=== PATIENT | male | born 1935 | race Caucasian/White ===

== ENCOUNTER 2017-09-25 14:54 | Inpatient (IN) | payer MEDICARE, OTHER ==
[2017-09-25] MEDS ORDERED: Metoprolol Tartrate 5 MG/5 ML VIAL ONE ×2 (15:14→16:09)
[2017-09-25 15:26] LABS: #Basophils 0.1 thou/uL (0.0-0.2); #Eosinphils 0.1 thou/uL (0.0-0.7); #Lymphocytes 1.7 thou/uL (1.20-3.40); #Monocytes 0.9 thou/uL (0.11-0.59); #Neutrophils 7.7 thou/uL (1.40-6.50); %Basophils 0.6 % (0.0-1.0); %Eosinophils 0.5 % (0.0-10.0); %Lymphocytes 16.1 % (21.0-51.0); %Monocytes 8.5 % (0.0-10.0); Hematocrit 44.3 % (42.0-52.0); Mean Platelet Volume 7.8 fL (7.4-10.4); Red Blood Cell (RBC) Count 4.54 mill/uL (4.70-6.10); White Blood Cell (WBC) Count 10.4 thou/uL (4.8-10.8)
[2017-09-25 15:47] LABS: ALT (SGPT) 16 U/L (8-55); AST (SGOT) 17 U/L (5-34); Alkaline Phosphatase 61 U/L (40-150); Anion Gap 12 mmol/L (10-20); BUN (Urea Nitrogen) 24 mg/dL (8.4-25.7); Bilirubin, Total 0.7 mg/dL (0.2-1.2); CK (CPK) 69 U/L (30-200); Calc. Creatinine Clearance 0 mL/min (70-130); Calcium 9.9 mg/dL (7.8-10.44); Carbon Dioxide 25 mmol/L (23-31); Chloride 99 mmol/L (98-107); Estimated GFR-MDRD 52; Globulin 2.9 g/dL (2.4-3.5); Protein, Total 6.6 g/dL (5.8-8.1)
[2017-09-25 15:50] LABS: Troponin I Less than 0.010 ng/mL (< 0.028)
--- NOTE | 2017-09-25 16:19 | RAD ---
CHEST SINGLE VIEW: Date: 09/25/17 COMPARISON: 07/01/17. INDICATION: Chest pain. FINDINGS: No consolidation, effusion, or pneumothorax. Cardiac silhouette is within normal limits of size for p ortable technique. Leads overlie the chest limiting detail. IMPRESSION: No focal consolidation. POS: WILLIAMS
[2017-09-25] MEDS ORDERED: Diltiazem HCl 125 MG, Admixture Fee 1 EACH in Sodium Chloride 0.9% 100 ML IVPB SCH (17:45)
[2017-09-25 18:58] LABS: Troponin I 0.011 ng/mL (< 0.028)
--- NOTE | 2017-09-25 19:22 | HP ---
PRIMARY CARE PROVIDER: TILA Bond. CHIEF COMPLAINT: Palpitations. HISTORY OF PRESENT ILLNESS: Mr. Sepulveda is a pleasant 82-year-old gentleman who was seen at [facility] on 09/25/2017. He was hospitalized at this facility from 07/02/2017 to 2016 for atrial fibrillation/atypical flutter, for which he underwent cardioversion. He reports doing well following discharge. He was seen by Electrophysiology Service as outpatient ap proximately 3 weeks ago. He reports that everything was fine. Two days ago, he developed palpitatio ns. Yesterday, his heart rate improved. However, today it worsened. His heart rate was reportedly in the 170s today. He therefore came to the emergency room. He denies any chest pain. He denies any lightheadedness. He denies any nausea or vomiting. REVIEW OF SYSTEMS: The following complete review of systems was negative, unless otherwise mentioned in the HPI or below: Constitutional: Weight loss or gain, sense of well-being, ability to conduct usual activities, exerc ise tolerance. Skin/Breast: Rash, itching, changes in hair growth or loss, nail changes, breast lumps, tenderness, swelling, nipple discharge. Eyes: Vision, double vision, tearing, blind spots, pain. ENT/Mouth: Headaches (location, time of onset, duration, precipitating factors), vertigo, lightheade dness, injury. Vision, double vision, tearing, blind spots, pain, nose bleeding, colds, obstruction, discharge, dental difficulties, gingival bleeding, dentures, neck stiffness, pain, tenderness, masses in thyroid or other areas. Cardiovascular: Precordial pain, substernal distress, palpitations, syncope, dyspnea on exertion, or thopnea, nocturnal paroxysmal dyspnea, edema, cyanosis, hypertension, heart murmurs, varicosities, ph lebitis, claudication. Respiratory: Pain, shortness of breath, wheezing, stridor, cough, hemoptysis, fever or night sweats. Gastrointestinal: Poor appetite, dysphagia, indigestion, abdominal pain, heartburn, eructation, naus ea, vomiting, hematemesis, jaundice, constipation, or diarrhea, abnormal stools (christa-colored, tarry, bloody, greasy, foul smelling), flatulence, hemorrhoids, recent changes in bowel habits. Genitourinary: Urgency, frequency, dysuria, nocturia, hematuria, polyuria, oliguria, unusual (or micheline nge in) color of urine, stones, hesitancy, change in size of stream, dribbling, acute retention or in continence, libido, potency. Musculoskeletal: Pain, swelling, redness or heat of muscles or joints, limitation, of motion, muscul ar weakness, atrophy, cramps. Neurologic/Psychiatric: Convulsions, paralyses, tremor, incoordination, paresthesias, difficulties w ith memory of speech, sensory or motor disturbances, or muscular coordination (ataxia, tremor), emoti onal problems, anxiety, depression, previous psychiatric care, unusual perceptions, hallucinations. Allergy/Immunologic: Skin rash, anemia, bleeding tendency, polydipsia, polyuria, intolerance to heat or cold. PAST MEDICAL HISTORY: Significant for hypertension, hypothyroidism, paroxysmal atrial fibrillation a nd dyslipidemia. PAST SURGICAL HISTORY: Significant for ablation for atrial fibrillation, bilateral cataract surgery, and skin cancer removal from the nose. SOCIAL HISTORY: The patient denies any tobacco use, alcohol use or recreational drug use. FAMILY HISTORY: No family history of premature coronary artery disease. ALLERGIES: ACETAMINOPHEN. CURRENT MEDICATIONS: Amlodipine 10 mg daily, apixaban 2.5 mg b.i.d., vitamin C 500 mg at bedtime, vi tamin D 1000 units daily, vitamin B12 of 1000 mcg daily, Multaq 400 mg 2 times a day, ferrous sulfate 45 mg at bedtime, folic acid 0.4 mg daily, levothyroxine 125 mcg daily, and Zocor 20 mg in the eveni ng. His beta octavia was stopped during his last admission. CODE STATUS: I discussed his code status. He is FULL CODE. His is the substitute decision [facility]. PHYSICAL EXAMINATION: GENERAL: On examination, Mr. Sepulveda is awake and alert, not in acute distress. VITAL SIGNS: Blood pressure is 138/109, pulse is 103, he is breathing at rate of 24 and saturating 9 6% on room air. He is afebrile. EYES: No scleral icterus. No conjunctival pallor. ENT: Moist mucosal membranes, no oropharyngeal erythema or exudates. NECK: Supple, nontender, normal range of movement, trachea is midline. RESPIRATORY: Accessory muscles of breathing are not active. Chest wall movements are symmetric bila terally. Lungs are clear to auscultation without wheeze, rhonchi or crepitations. CARDIOVASCULAR: S1 and S2 are heard, irregular and tachycardic. Peripheral pulses palpable. No car otid bruit, no pericardial rub. ABDOMEN: Soft, nontender, bowel sounds heard, no hepatomegaly, no splenomegaly. NEUROLOGIC: Cranial nerves II-XII are intact. Deep tendon reflexes are 2+. MUSCULOSKELETAL: Power is 5/5 in all 4 extremities. Normal range of movement at all major extremity joints. SKIN: No rashes or subcutaneous nodules. LYMPHATIC: No cervical lymphadenopathy. PSYCHIATRIC: Normal mood, normal affect, the patient is oriented to person, place, and time. LABORATORY DATA: Mr. Sepulveda's labs and investigations were reviewed. I reviewed his electrocardiogram , which shows atrial fibrillation with rapid ventricular response. No ST changes to suggest an acute coronary syndrome. I also reviewed his chest x-ray, which does not show any pulmonary infiltrates. Laboratory investigations revealed normal white count, normal hemoglobin, normal platelet count, nor mal TSH, normal liver profile, elevated creatinine of 1.33, last known creatinine was 1.36 on 017, decreased sodium of 132 and normal potassium. ASSESSMENT AND PLAN: Mr. Sepulveda is a pleasant 82-year-old gentleman who was seen at [facility]. His problem list includes: 1. Atrial fibrillation with rapid ventricular response: Mr. Sepulveda has been started on a Cardizem dri p. His heart rate is between 100 and 110 currently. We will continue him on Cardizem drip. He will be admitted to the hospital for Cardiology Service consultation, telemetry monitoring. 2. Hyponatremia: Mild, we will recheck. 3. Hypothyroidism: His Synthroid dose was increased during his last admission. His TSH is normal n ow. Continue current dose of Synthroid. 4. Hypertension: Monitor vital signs, titrate antihypertensives as needed. 5. Dyslipidemia: Continue statin. Many thanks for allowing me to participate in your patient's care. Please feel free to contact me wi th any questions or concerns. LEVEL OF RISK: High. LEVEL OF COMPLEXITY: High.
[2017-09-25] MEDS ORDERED: Diltiazem 125 MG in Sodium Chloride 0.9% 100 ML IVPB SCH (21:15)
[2017-09-25] MEDS: Apixaban 5 MG TAB PO SCH (21:48)
[2017-09-25] MEDS: Atorvastatin Calcium 10 MG TAB PO SCH (21:48)
[2017-09-25] MEDS: Ascorbic Acid 500 mg Chewable Tablet PO SCH (21:50)
[2017-09-25 22:03] LABS: Troponin I 0.012 ng/mL (< 0.028)
[2017-09-25 23:57] VITALS: BMI 20.6
[2017-09-26 05:22] LABS: Hematocrit 45.6 % (42.0-52.0)
[2017-09-26] MEDS: Levothyroxine Sodium 125 MCG TAB PO SCH (06:21)
[2017-09-26] MEDS ORDERED: Amlodipine 10 MG TAB PO SCH ×2 (09:00→11:12)
[2017-09-26] MEDS: Dronedarone HCl 400 MG TAB PO SCH ×2 (10:16→18:21)
[2017-09-26] MEDS: Cyanocobalamin (Vitamin B-12) 1,000 MCG TAB PO SCH (10:17)
[2017-09-26] MEDS: Apixaban 5 MG TAB PO SCH ×2 (10:17→21:36)
[2017-09-26] MEDS: Folic Acid 1 MG TAB PO SCH (10:18)
[2017-09-26] MEDS ORDERED: Metoprolol Tartrate 25 MG TAB PO SCH (11:45)
--- NOTE | 2017-09-26 13:24 | PDOC.PN ---
- Subjective Encounter Start Date: 09/26/17 Encounter Start Time: 08:20 Pt seen for followup re; atrial fibrillation. Denies chest pain, shortness of breath, fevers or chills. - Objective MAR Reviewed: Yes Vital Signs & Weight: Vital Signs (12 hours) Temp Pulse Resp BP BP Pulse Ox 09/26/17 11:37 96.2 F L 85 20 136/88 09/26/17 10:17 115 H 129/95 H 09/26/17 08:00 96.2 F L 85 20 133/87 98 09/26/17 04:00 97.7 F 81 18 113/80 98 Weight Weight 152 lb 4.8 oz I&O: 09/25/17 09/26/17 09/27/17 06:59 06:59 06:59 Intake Total 728 Output Total 1750 Balance -1022 Result Diagrams: 09/26/17 04:34 09/26/17 04:34 EKG Reviewed by me: Yes (Tele: NSR) Phys Exam - Physical Examination Constitutional: NAD HEENT: moist MMs Neck: supple Respiratory: clear to auscultation bilateral Cardiovascular: RRR Gastrointestinal: soft Musculoskeletal: pulses present Neurological: moves all 4 limbs Psychiatric: normal affect Skin: no rash Dx/Plan (1) Atrial fibrillation Code(s): I48.91 - UNSPECIFIED ATRIAL FIBRILLATION Status: Acute (2) Dyslipidemia Code(s): E78.5 - HYPERLIPIDEMIA, UNSPECIFIED Status: Chronic (3) HTN (hypertension) Code(s): I10 - ESSENTIAL (PRIMARY) HYPERTENSION Status: Chronic Qualifiers: Hypertension type: essential hypertension (4) Hypothyroidism Code(s): E03.9 - HYPOTHYROIDISM, UNSPECIFIED Status: Chronic Qualifiers: Hypothyroidism type: unspecified - Plan out of bed/ambulate * . Pt is now in sinus rhythm Await cardiology consult. Review of Systems - Review of Systems Respiratory: negative: Cough, Dry, Shortness of Breath, Hemoptysis, SOB with Excertion, Pleuritic Pain, Sputum, Wheezing Cardiovascular: negative: Chest Pain, Palpitations, Orthopnea, Paroxysmal Noc. Dyspnea, Edema, Light Headedness - Medications/Allergies Allergies/Adverse Reactions: Allergies Allergy/AdvReac Type Severity Reaction Status Date / Time acetaminophen [From Tylenol] Allergy ITCHINESS Verified 09/25/17 20:21 Medications: Current Medications Amlodipine Besylate (Norvasc) 5 mg PO DAILY [facility] Apixaban (Eliquis) 5 mg PO BID [facility] Ascorbic Acid (Vitamin C) 500 mg PO HS [facility] Last Admin: 09/25/17 21:50 Dose: 500 mg Atorvastatin Calcium (Lipitor) 10 mg PO QPM [facility] Last Admin: 09/25/17 21:48 Dose: 10 mg Cholecalciferol (Vitamin D3) 1,000 units PO DAILY [facility] Last Admin: 09/26/17 10:16 Dose: 1,000 units Cyanocobalamin (Vitamin B-12) 1,000 mcg PO DAILY [facility] Last Admin: 09/26/17 10:17 Dose: 1,000 mcg Dronedarone (Multaq) 400 mg PO BID[facility] Last Admin: 09/26/17 10:16 Dose: 400 mg Ferrous Sulfate (Ferrous Sulfate) 225 mg PO HS [facility] Last Admin: 09/25/17 22:04 Dose: 225 mg Folic Acid (Folvite) 0.5 mg PO DAILY [facility] Last Admin: 09/26/17 10:18 Dose: 0.5 mg Levothyroxine Sodium (Synthroid) 125 mcg PO 0600 [facility] Last Admin: 09/26/17 06:21 Dose: 125 mcg Metoprolol Tartrate (Lopressor) 25 mg PO BID [facility]
--- NOTE | 2017-09-26 13:54 | CON ---
DATE OF CONSULTATION: 09/26/2017 CARDIOLOGY CONSULTATION NOTE INDICATION FOR CONSULTATION: This is an 82-year-old gentleman with recurrent atrial fibrillation. Param hugo has had episodes of atrial fibrillation in the past. He recently underwent ablation in 07/26/2017 in [place]. For his atrial fibrillation, he is cardioverted 07/07/2017 prior to undergoing the ablati on. He had previously been on Multaq; this medication was stopped after the ablation. He also was t aking antiarrhythmics or beta blockers after the procedure. He presented again saying that he notice d some palpitations on Tuesday and then on Tuesday or Tuesday noticeably he became worse. He presente d to the hospital and was admitted and had atrial fibrillation with rapid ventricular response. In t emergency room, EKG did indicate atrial fibrillation and the heart rate was 141 beats per minute. Since that time, he has since converted back to sinus rhythm and symptoms has accelerated junctional rhythm or has an ectopic atrial rhythm, but appears to be still having some sinus tachycardia associ ated with this. The heart rate still was in low 100s. He is better, but the patient does has have a nxiety and is somewhat nervous due to the increase in the heart rate. He is concerned that the medic ations have not worked and the ablation also appears not to have worked sufficiently for him. I did explain to him that this will take time and it was not unusual several months later to have episodes of atrial fibrillation, then eventually should settle down. In the interim, he has been placed back on Multaq. He did have concerns that medication was too expensive, was not ever been on other medica tions that he can take. He denies any chest pain or shortness of breath or any other associated symp toms. He just felt somewhat fidgety or nervous with the atrial fibrillation and irregular heart rate . PAST MEDICAL HISTORY: Significant for ablation for atrial tachycardias in the past. He has also had cardioversion and he recently had an ablation of atrial fibrillation. He has hypothyroidism. He jovel s had cataract surgeries and has had skin cancer removals. He does have hypercholesterolemia as well as hypertension. SOCIAL HISTORY: He is . He has no history of alcohol or tobacco abuse. FAMILY HISTORY: Unremarkable. ALLERGIES: TYLENOL. PRESENT MEDICATIONS: Include amlodipine, he was taking 10 mg a day, I will decrease this to 5 mg a d ay. Eliquis, he was taking 2.5 mg and I will increase this up to 5 mg a day. The recommendations ar e for 5 mg b.i.d. for atrial fibrillation; however, if he is more than 80 years old, has a weight of less than 60 kilograms or has creatinine of 1.5, then 2.5 mg will be adequate, but he does not meet t hese criteria and 5 mg twice a day is a recommended dose. He is also taking vitamins. He is taking atorvastatin 10 mg daily, vitamin D. He is also taking B12. He is on Multaq 40 mg b.i.d., ferrous s ulfate 325 mg q.p.m., folic acid 0.5 mg every day; levothyroxine 125 mcg daily and metoprolol which a lso recently started today 25 mg b.i.d. REVIEW OF SYSTEMS: Significant for some hearing loss, it is completely unremarkable except what was stated in the history of present illness for the 12-point review of systems. PHYSICAL EXAMINATION: GENERAL: Reveals a well-developed, well-nourished gentleman. VITAL SIGNS: Blood pressure is 113/80, heart rate is 81, somewhat irregular at times, but most of th e time does appear to be regular. He is afebrile, respiratory rate is 18. HEENT: Shows head to be normocephalic and atraumatic. Carotid pulses are present without any bruits . There is no JVD. The thyroid is not enlarged. Oral mucosa was pink and moist. CHEST: Clear to auscultation with no rales, rhonchi or wheezing. CARDIOVASCULAR: Exam at this time reveals regular rhythm with occasional ectopy, but otherwise appea rs to be overall relatively regular. I did not hear any significant murmurs, heaves, thrills, bruits or rubs. ABDOMEN: Soft and nontender with positive bowel sounds. No organomegaly or masses noted. Femoral p ulses are present. EXTREMITIES: Show no clubbing, cyanosis or edema. Pedal pulses are present. NEUROLOGIC: Neurologically, the patient appears to be fully intact. He has normal strength and tone . SKIN: Warm and dry. IMAGING: EKG on admission showed atrial fibrillation with rapid ventricular response which was then converted to accelerated junctional rhythm and now sometimes appears to be an ectopic atrial rhythm o r sinus, but does not appear to be atrial fibrillation. IMPRESSION AND PLAN: 1. Atrial fibrillation which has converted back to sinus rhythm. We will continue medical managemen t. He did undergo a recent ablation on 07/26/2017. We will discuss this case with electrophysiologi . If he does not continue to have sinus rhythm in the interim, I would suggest we continue Multaq and also we will give low dose of beta blockers and increase the dose of Eliquis up to 5 mg twice a d ay. 2. Hypertension. This is under good control at this time. 3. Hyponatremia. We will need to just volume restrict and we will fluid restrict the patient. Most likely, the sodium will return to baseline and return to normal. 4. Hypothyroidism. He will continue his medications. He has also hypercholesterolemia. He will co ntinue on statin medications. At this time, overall he appears to be relatively stable from a cardia c standpoint. We are happy to continue to follow the patient with you. If he continues to have episodes of atrial fibrillation, we may need to consider another cardioversio n; however, at this time, he does have episodes of sinus rhythm.
[2017-09-26] MEDS ORDERED: Sodium Chloride 0.9% 10 ML ONE (21:14)
[2017-09-26] MEDS: Metoprolol Tartrate 25 MG TAB PO SCH (21:36)
[2017-09-26] MEDS: Atorvastatin Calcium 10 MG TAB PO SCH (21:36)
[2017-09-26] MEDS: Ascorbic Acid 500 mg Chewable Tablet PO SCH (21:37)
[2017-09-27] MEDS: Levothyroxine Sodium 125 MCG TAB PO SCH (05:56)
[2017-09-27] MEDS: Cyanocobalamin (Vitamin B-12) 1,000 MCG TAB PO SCH (08:42)
[2017-09-27] MEDS: Folic Acid 1 MG TAB PO SCH (08:42)
[2017-09-27] MEDS: Apixaban 5 MG TAB PO SCH (08:42)
[2017-09-27] MEDS: Metoprolol Tartrate 25 MG TAB PO SCH (08:42)
[2017-09-27] MEDS: Dronedarone HCl 400 MG TAB PO SCH (08:43)
[2017-09-27 12:42] VITALS: BP 127/86; TEMP 97
--- NOTE | 2017-09-27 13:03 | PDOC.CTH ---
Cardiology Progress Note - Subjective The pt seen and examined. No overnight events. He felt pounding sensation in his head and chest for 10 mins around 0630 this AM. He denied CP or discomfort in his chest, or other cardiac complaints. - Objective Vital Signs Temp Pulse Resp BP Pulse Ox 09/27/17 12:00 97.0 F L 80 17 127/86 98 09/27/17 08:43 75 09/27/17 07:50 97.6 F 75 20 135/85 98 09/27/17 04:35 98 F 80 16 112/81 96 Weight 147 lb 1.6 oz 09/26/17 09/27/17 09/28/17 06:59 06:59 06:59 Intake Total 728 910 Output Total 1750 600 Balance -1022 310 - Physical Examination General/Neuro: alert & oriented x3 Neck: no JVD present Lungs: CTA Heart: RRR Abdomen: soft Extremities: other: (No edemas) - Telemetry Telemetry Rhythm: AJR and SR 60-70s - Labs Result Diagrams: 09/26/17 04:34 09/26/17 04:34 Troponin/CKMB CK-MB (CK-2) 1.3 ng/mL (0-6.6) 09/25/17 15:17 Troponin I 0.012 ng/mL (< 0.028) 09/25/17 21:22 - Assessment/Plan 1. A Fib with s/p Ablation in 07/2017 - Remain AJR with well controlled HR with Multaq and BBlocker; on Eliquis 5mg BID; cont. monitor on tele 2. HTN - well controlled with current medication 3. Hypothyroidism - on thyroid medication; managed by PCP 4. Dyslipidemia - on Statin 5. Hyponatremia - on 1200ml/day fluid restriction MAR reviewed * From Cardiac standpoint, the pt is stable to d/c home; The pt must f/u with his EP doctor within 2-4 wks. Until he f/u with EP, we would like to continue current medications. Review of Systems - Review of Systems Constitutional: reports: no symptoms reported EENTM: reports: no symptoms reported Respiratory: reports: no symptoms reported Cardiac (ROS): reports: no symptoms reported ABD/GI: reports: no symptoms reported : reports: no symptoms reported Musculoskeletal: reports: no symptoms reported Skin: reports: no symptoms reported
--- NOTE | 2017-09-27 18:57 | DIS ---
DATE OF ADMISSION: 09/25/2017 DATE OF DISCHARGE: 09/27/2017 PRIMARY CARE PROVIDER: TILA Bond DISCHARGE DIAGNOSIS: Atrial fibrillation. CONSULTATIONS DURING THIS HOSPITALIZATION: Cardiology, Dr. Peng. DISCHARGE MEDICATIONS: His home medications are being restarted, as described on history and physica l note from 09/25/2017. In addition, he has been started on Lopressor 25 mg 2 times a day. CONDITION OF PATIENT AT THE TIME OF DISCHARGE: Stable. I assessed Mr. Sepulveda on the day of discharge. He denies any chest pain or shortness of breath. Vital signs are stable. youth nutritional monitor shows normal sinus rhythm. S1 and S2 are heard, regular. Lungs are clear to auscultation bilaterally. HOSPITAL COURSE: Mr. Sepulveda is a pleasant 82-year-old gentleman, who was admitted to [facility] on 09/25/2017 for atrial fibrillation with rapid ventricular response. He was initi ally treated with Cardizem drip and spontaneously converted to normal sinus rhythm. He was seen by C ardiology Service. He has been started on metoprolol tartrate 25 mg 2 times a day. He has been advi sed to follow up with his primary care provider as well as with Electrophysiology Service. Many thanks for allowing me to participate in your patient's care. Please feel free to contact me wi th any questions or concerns. He had a normal TSH of 3.9509 during this hospitalization. DISCHARGE DESTINATION: Home. TOTAL AMOUNT OF TIME SPENT COORDINATING THIS DISCHARGE: 33 minutes.
--- NOTE | 2017-10-15 10:43 | EKG ---
Test Reason : Blood Pressure : / mmHG Vent. Rate : 117 BPM Atrial Rate : 153 BPM P-R Int : 000 ms QRS Dur : 096 ms QT Int : 326 ms P-R-T Axes : 000 -31 182 degrees QTc Int : 454 ms Atrial fibrillation with rapid ventricular response Left axis deviation Septal infarct , age undetermined Abnormal ECG Confirmed by ANTON SULLIVAN M.D. ([id number]), film and video editor KIMBERLY WATERMAN ([id number]) on 10/15/2017 10:42:57 AM Referred By: Confirmed By:ANTON SULLIVAN M.D.
--- NOTE | 2017-10-15 10:43 | EKG ---
Test Reason : Blood Pressure : / mmHG Vent. Rate : 141 BPM Atrial Rate : 089 BPM P-R Int : 000 ms QRS Dur : 096 ms QT Int : 308 ms P-R-T Axes : 000 016 229 degrees QTc Int : 471 ms Atrial fibrillation with rapid ventricular response Septal infarct , age undetermined Abnormal ECG Confirmed by ANTON SULLIVAN M.D. ([id number]), department editor KIMBERLY WATERMAN ([id number]) on 10/15/2017 10:42:52 AM Referred By: Confirmed By:ANTON SULLIVAN M.D.
== END 2017-09-27 17:25 | disposition home or self-care (01) | DRG 309 ==
LOC: ERS 14:54 → 2NO 18:22
PROVIDERS: ADMIT Internal Medicine; ATTEND Internal Medicine
DX: I48.91 Unspecified atrial fibrillation (principal); E87.1 Hypo-osmolality and hyponatremia; I10 Essential (primary) hypertension; E03.9 Hypothyroidism, unspecified; E78.5 Hyperlipidemia, unspecified; Z85.828 Personal history of other malignant neoplasm of skin; Z87.891 Personal history of nicotine dependence
CPT/HCPCS: 36415; 71010; 80053; 82550; 82553; 82565; 83735; 84100; 84443; 84484; 85014; 85018; 85025; 85049; 93005; 94760; 96361; 96365; 96375; 96376; A4216; J7050

== ENCOUNTER 2018-08-03 08:31 | Observation (INO) | payer MEDICARE, OTHER ==
[2018-08-03 09:08] LABS: #Eosinphils 0.1 thou/uL (0.0-0.7); #Lymphocytes 1.7 thou/uL (1.20-3.40); #Monocytes 1.2 thou/uL (0.11-0.59); #Neutrophils 6.6 thou/uL (1.40-6.50); %Basophils 0.3 % (0.0-1.0); %Eosinophils 1.4 % (0.0-10.0); %Lymphocytes 17.5 % (21.0-51.0); %Monocytes 12.4 % (0.0-10.0); %Neutrophils 68.4 % (42.0-75.0); Hemoglobin 15.6 g/dL (14.0-18.0); Mean Corpuscular HGB CONC 32.9 g/dL (32.0-36.0); Mean Corpuscular Hemoglobin 31.9 pg (27.0-31.0); Mean Corpuscular Volume 96.9 fL (78.0-98.0); Mean Platelet Volume 7.9 fL (7.4-10.4); Platelet Count 202 thou/uL (130-400); RBC Distribution Width 12.6 % (11.5-14.5); Red Blood Cell (RBC) Count 4.91 mill/uL (4.70-6.10); White Blood Cell (WBC) Count 9.6 thou/uL (4.8-10.8)
[2018-08-03 09:15] LABS: INR-International Normal Ratio 1.5; PTT 38.6 SEC (22.9-36.1); Prothrombin Time 17.7 SEC (12.0-14.7)
[2018-08-03 09:26] LABS: Anion Gap 12 mmol/L (10-20); BUN (Urea Nitrogen) 24 mg/dL (8.4-25.7); Calc. Creatinine Clearance 39 mL/min (70-130); Calcium 10.2 mg/dL (7.8-10.44); Carbon Dioxide 23 mmol/L (23-31); Chloride 105 mmol/L (98-107); Estimated GFR-MDRD 45; Glucose 105 mg/dL (83-110); Potassium 4.2 mmol/L (3.5-5.1); Sodium 136 mmol/L (136-145)
[2018-08-03] MEDS ORDERED: Heparin 10,000 UNITS/1 ML VIAL ONE ×2 (10:36→11:48)
[2018-08-03] MEDS ORDERED: Lidocaine 1% (PF) 30 ML VIAL ONE (11:16)
[2018-08-03] MEDS ORDERED: Phenylephrine HCL 10 MG/ML VIAL ONE (11:48)
[2018-08-03] MEDS ORDERED: PHENYLEPHRINE-NS 100 MCG/ML 10 ML SYRINGE ONE (11:55)
[2018-08-03] MEDS ORDERED: Dexamethasone 20 MG/5 ML VIAL ONE (11:55)
[2018-08-03] MEDS ORDERED: PROPOFOL 200 MG/20 ML VIAL ONE (11:55)
[2018-08-03] MEDS ORDERED: Glycopyrrolate 0.2 MG/ML 5 ML SYRINGE ONE (11:55)
[2018-08-03] MEDS ORDERED: Ondansetron PF 4 MG/2 ML Vial ONE (11:55)
[2018-08-03] MEDS ORDERED: Lidocaine 1% PF 5 ML VIAL ONE (11:55)
[2018-08-03] MEDS ORDERED: Heparin 30,000 units/30 ml VIAL ONE (11:55)
[2018-08-03] MEDS ORDERED: Protamine Sulfate 50 MG/5 ML VIAL ONE (12:39)
--- NOTE | 2018-08-03 13:06 | OP ---
DATE OF PROCEDURE: 08/03/2018 SURGEON: Dr. Madison Morgan PROCEDURE: Electrophysiology study with radiofrequency ablation. PREOPERATIVE DIAGNOSEIS: Atrial fibrillation and atypical atrial flutter. PROCEDURE DETAILS: The patient came to the EP Lab in the postabsorptive state. Informed consent was obtained. A timeout was called. The patient was sedated by a member of the Anesthesia staff. Once the patient was adequately sedated, the right and left femoral regions were prepped and draped in us ual sterile fashion. Using a modified Seldinger technique and with ultrasound guided access, access obtained x2 in the right femoral vein x1 and left femoral vein and x1 in the right jugular vein. A 2 0 pole Duodeca catheter was advanced in the right jugular vein and placed into the coronary sinus for the distal 10 poles in the coronary sinus for left atrial pacing and recording, the proximal 10 pole s were in the right atrium. An intracardiac ultrasound catheter was advanced from the left femoral v ein and placed in the right atrium for intraprocedural monitoring and guidance. Heparin bolus was gi lei to achieve an ACT of 350 or greater. Transseptal puncture x2 was performed under ultrasound guid ance via sheaths in the right femoral vein. A 10 pole circular mapping catheter was advanced into th e left atrium as was a STSF J-curve catheter, electro anatomical map was obtained. It was noted that there was some potentials outside the left inferior pulmonary vein. These were ablated. The patien t was in atypical atrial flutter which was mapped and ablated successfully along the anterior wall of the left atrium. Continued ablation of the anterior wall, posterior wall near the coronary sinus wi th careful attention to esophageal temperatures as well as in the coronary sinus resulted in isolatio n of the left atrial appendage. Isoproterenol was given and no further arrhythmias were induced. Th e atrial appendage remained isolated. As such, the catheters were withdrawn, HV interval was 50 mill iseconds. The patient tolerated the procedure well and hemostasis was obtained with Vascade devices. The patient was then taken off the table. PROCEDURE PERFORMED: Atrial fibrillation ablation. Additional ablation, mapping and ablation of marquis praventricular tachycardia. 3D electro anatomical mapping system drug intracardiac echo, transseptal puncture, left atrial pacing and recording and LV pacing and recording. CONCLUSIONS: 1. Successful isolation of the left atrial appendage. 2. Successful isolation of the remainder of the posterior wall and the left inferior pulmonary vein. 3. Successful termination of atrial flutter which is atypical. 4. Successful ablation and isolation of the coronary sinus. RECOMMENDATIONS: The patient will be at bed rest. The patient will continue anticoagulant therapy i ndefinitely. The patient was cautioned not to discontinue anticoagulant therapy for greater than 24 hours at any given time. The patient will follow up with Electrophysiology in 6 weeks. COMPLICATIONS: None acute. ESTIMATED BLOOD LOSS: Less than 30 mL. POSTOPERATIVE DIAGNOSES: Atrial fibrillation and atypical atrial flutter.
[2018-08-03 15:22] VITALS: BMI 22.2
[2018-08-03] MEDS: Sucralfate 1 GM TAB PO SCH ×2 (17:34→20:35)
[2018-08-03] MEDS: Dronedarone HCl 400 MG TAB PO SCH (17:34)
[2018-08-03] MEDS: Metoprolol Tartrate 25 MG TAB PO SCH (20:36)
[2018-08-03] MEDS: Apixaban 5 MG TAB PO SCH (20:36)
[2018-08-03] MEDS ORDERED: Simvastatin 20 MG TAB PO SCH (21:00)
[2018-08-03] MEDS ORDERED: Ascorbic Acid 500 mg Chewable Tablet PO SCH (21:00)
[2018-08-04] MEDS ORDERED: Levothyroxine Sodium 125 MCG TAB PO SCH (06:00)
[2018-08-04] MEDS ORDERED: Ferrous Sulfate 325 MG TAB PO SCH (08:00)
[2018-08-04] MEDS: Dronedarone HCl 400 MG TAB PO SCH (08:38)
[2018-08-04] MEDS: Apixaban 5 MG TAB PO SCH (08:38)
[2018-08-04] MEDS: Sucralfate 1 GM TAB PO SCH ×2 (08:38→13:05)
[2018-08-04] MEDS: Metoprolol Tartrate 25 MG TAB PO SCH (08:38)
[2018-08-04] MEDS ORDERED: Folic Acid 1 MG TAB PO SCH (09:00)
[2018-08-04] MEDS ORDERED: Amlodipine 10 MG TAB PO SCH (09:00)
[2018-08-04] MEDS ORDERED: Cyanocobalamin (Vitamin B-12) 1,000 MCG TAB PO SCH (09:00)
[2018-08-04 12:00] VITALS: BP 118/71; TEMP 97.3
--- NOTE | 2018-08-05 08:29 | EKG ---
Test Reason : PREOP Blood Pressure : / mmHG Vent. Rate : 119 BPM Atrial Rate : 119 BPM P-R Int : 142 ms QRS Dur : 096 ms QT Int : 320 ms P-R-T Axes : 060 -33 178 degrees QTc Int : 450 ms Sinus tachycardia Left axis deviation Abnormal ECG When compared with ECG of 25-SEP-2017 16:07, Sinus rhythm has replaced Atrial fibrillation ST now depressed in Anterior leads Inverted T waves have replaced nonspecific T wave abnormality in Anterolateral leads Confirmed by CHI RAMIREZ ([id number]) on 08/05/2018 8:29:05 AM Referred By: BETO Confirmed By:CHI RAMIREZ
--- NOTE | 2018-08-05 08:35 | EKG ---
Test Reason : S/P ABLATION Blood Pressure : / mmHG Vent. Rate : 062 BPM Atrial Rate : 062 BPM P-R Int : 202 ms QRS Dur : 100 ms QT Int : 456 ms P-R-T Axes : 061 -22 -81 degrees QTc Int : 462 ms Normal sinus rhythm T wave abnormality, consider inferior ischemia T wave abnormality, consider anterolateral ischemia Prolonged QT Abnormal ECG When compared with ECG of 03-AUG-2018 09:11, (Unconfirmed) Vent. rate has decreased BY [address] no longer depressed in Anterior leads T wave inversion now evident in Inferior leads Confirmed by CHI RAMIREZ ([id number]) on 08/05/2018 8:35:08 AM Referred By: BETO Confirmed By:CHI RAMIREZ
--- NOTE | 2018-08-05 08:44 | EKG ---
Test Reason : Blood Pressure : / mmHG Vent. Rate : 055 BPM Atrial Rate : 055 BPM P-R Int : 196 ms QRS Dur : 104 ms QT Int : 428 ms P-R-T Axes : 067 -18 -29 degrees QTc Int : 409 ms Sinus bradycardia Nonspecific T wave abnormality Abnormal ECG When compared with ECG of 03-AUG-2018 14:01, (Unconfirmed) Nonspecific T wave abnormality has replaced inverted T waves in Anterior leads Confirmed by CHI RAMIREZ ([id number]) on 08/05/2018 8:44:16 AM Referred By: BETO Confirmed By:CHI RAMIREZ
--- NOTE | 2018-08-07 10:37 | DIS ---
DATE OF DISCHARGE: 08/04/2018 ATTENDING PHYSICIAN: Blaire Peng M.D. FINAL DIAGNOSES: 1. Persistent atrial fibrillation, status post venous isolation procedure in 07/2017 with recurrent focal atrial tachycardia/flutter requiring cardioversion and Multaq suppression in 06/2017. A. Status post elective redo pulmonary venous isolation and left atrial flutter ablation on 08/03/[address] Morgan. 2. Prior history of preserved left ventricular function. 3. History of bradycardia, Multaq and metoprolol. 4. Stroke prophylaxis, Eliquis. HOSPITAL COURSE: Mr. Sepulveda underwent left atrial ablation procedure with Dr. Morgan yesterday. He tolerated the procedure well. No complications were noted. During the procedure, he underwent isola tion of left atrial appendage, successful isolation of posterior wall, left inferior pulmonary vein a nd successful termination of atypical atrial flutter and also ablation and isolation of the coronary sinus. He remained stable overnight the subsequent day. PHYSICAL EXAMINATION: VITAL SIGNS: Stable. Blood pressure is 118/71, heart rate 53, respiration is 20, temperature 97.3 d egrees Fahrenheit. reveals sinus rhythm. Digital exam reveals no significant groin hematoma. NECK: Jugular veins not distended. CHEST: Clear. HEART: Sounds are regular to rate and rhythm. No murmur, gallop or rub is heard. ABDOMEN: Benign. Bowel sounds positive. EXTREMITIES: Lower extremities without edema. PLAN: Discharge home on primary regimen except Multaq will be stopped. He is encouraged to continue Eliquis, levothyroxine, amlodipine, simvastatin, iron supplements, vitamin B12, vitamin D, vitamin C , metoprolol tartrate 25 mg twice a day, folic acid. I gave him a prescription for Lasix 40 mg daily with K-Dur 10 mEq for 10 days if needed for fluid overload. He also start Protonix 40 mg daily and Carafate 1 gram 4 times a day for the next 2 weeks. He is encouraged to follow up in 6 weeks in our office. His device about avoiding stress on the groin or excessive water exposure.
== END 2018-08-04 15:15 | disposition home or self-care (01) ==
LOC: CCL 08:31 → 2SW 15:05
PROVIDERS: ADMIT Specialist; ATTEND Specialist
PROC: 4A023FZ Measurement of Cardiac Rhythm, Percutaneous Approach (ICD-10-PCS; principal; 2018-08-03)
PROC: 02583ZZ Destruction of Conduction Mechanism, Percutaneous Approach (ICD-10-PCS; 2018-08-03)
PROC: 02K83ZZ Map Conduction Mechanism, Percutaneous Approach (ICD-10-PCS; 2018-08-03)
DX: I48.0 Paroxysmal atrial fibrillation (principal); I48.1 Persistent atrial fibrillation; I48.4 Atypical atrial flutter; E78.5 Hyperlipidemia, unspecified; E03.9 Hypothyroidism, unspecified; I10 Essential (primary) hypertension; Z87.891 Personal history of nicotine dependence; Z79.01 Long term (current) use of anticoagulants; Z79.899 Other long term (current) drug therapy; Z88.8 Allergy status to other drugs, medicaments and biological substances
CPT/HCPCS: 76942; 80048; 85025; 85347 ×2; 85610; 85730; 90662; 93005 ×3; 93613; 93623; 93656; 93662; C1731; C1759; C1769; G0008; G0378; 36415; 90471; 93010; J1100; J1644; J2001; J2370; J2405; J2704; J2720

== ENCOUNTER 2018-08-14 09:57 | Outpatient (CLI) | payer MEDICARE, OTHER ==
--- NOTE | 2018-08-14 12:41 | RAD ---
CHEST ONE VIEW LEFT RIBS THREE VIEWS: History: 83-year-old male with history of left rib pain following a fall. There is slight focal bending of the 9th and 10th ribs laterally, evidence for nondisplaced fractures . No pneumothorax or pleural effusion. IMPRESSION: Evidence for nondisplaced bending type fractures of the left 9th and 10th lateral ribs without pneumo thorax or pleural effusion. POS: [facility]
== END 2018-08-14 09:58 | disposition home or self-care (01) ==
LOC: RAD-FRANK 09:57
PROVIDERS: ATTEND Nurse Practitioner Family
DX: R07.89 Other chest pain (principal)

== ENCOUNTER 2019-02-08 11:18 | Outpatient (CLI) | payer MEDICARE, OTHER ==
--- NOTE | 2019-02-08 11:40 | RAD ---
XR Lumbar Spine 2 Or 3 View HISTORY: Low back pain COMPARISON: None. FINDINGS: Multilevel degenerative changes are present. No acute fracture, dislocation, subluxation or bony destruction is seen. Vascular calcifications are present. IMPRESSION: Lumbar spondylosis.
--- NOTE | 2019-02-08 11:42 | RAD ---
XR Knee Lt 4 View STANDARD HISTORY: Left knee pain COMPARISON: None. FINDINGS: Degenerative changes are present manifested by osteophyte formation, joint space narrowing and chondrocalcinosis. No fracture, dislocation or bony destruction is seen. IMPRESSION: Left knee osteoarthritis
--- NOTE | 2019-02-08 11:43 | RAD ---
XR Tib Fib Lt Leg 2 View HISTORY: Left leg pain COMPARISON: None. FINDINGS: The left tibia and fibula are intact. There are degenerative changes in the knee joint. IMPRESSION: No acute process.
== END 2019-02-08 11:19 | disposition home or self-care (01) ==
LOC: RAD-FRANK 11:18
PROVIDERS: ATTEND Nurse Practitioner Family
DX: M25.562 Pain in left knee (principal); M79.605 Pain in left leg; M54.5 Low back pain; M17.12 Unilateral primary osteoarthritis, left knee; M47.816 Spondylosis without myelopathy or radiculopathy, lumbar region
CPT/HCPCS: 72100

== ENCOUNTER 2024-08-02 19:31 | Emergency (ER) | payer MEDICARE, OTHER ==
[~2024-08-02 19:31] MED LIST: Iopamidol-370 76% 500 ML MDV (1 ML CHARGE) ONE
[2024-08-02 20:25] LABS: #Basophils 0.05 10x3/uL (0.0-0.2); %Basophils 0.4 % (0.0-1.0); %Eosinophils 0.9 % (0.0-10.0); %Lymphocytes 9.6 % (21.0-51.0); %Monocytes 8.2 % (0.0-10.0); %Neutrophils 80.4 % (42.0-75.0); Hematocrit 44.2 % (42.0-52.0); Hemoglobin 14.5 g/dL (14.0-18.0); Mean Corpuscular HGB CONC 32.8 g/dL (32.0-36.0); Mean Corpuscular Hemoglobin 32.4 pg (27.0-31.0); Mean Corpuscular Volume 98.7 fL (78.0-98.0); Mean Platelet Volume 10.5 fL (7.4-10.4); Platelet Count 211 10x3/uL (130-400); RBC Distribution Width 13.2 % (11.5-14.5); Red Blood Cell (RBC) Count 4.48 mill/uL (4.70-6.10)
[2024-08-02] MEDS ORDERED: Morphine 4 MG/ML VIAL ONE ×2 (20:33→22:26)
[2024-08-02 20:39] LABS: INR-International Normal Ratio 0.9; PTT 27.9 sec (22.9-36.1); Prothrombin Time 12.5 sec (12.0-14.7)
[2024-08-02 20:40] LABS: ALT (SGPT) 19 U/L (8-55); AST (SGOT) 19 U/L (5-34); Alkaline Phosphatase 84 U/L (40-110); Anion Gap 13 mmol/L (10-20); BUN (Urea Nitrogen) 24 mg/dL (8.4-25.7); Bilirubin, Total 0.4 mg/dL (0.2-1.2); Calc. Creatinine Clearance 0 mL/min (70-130); Calcium 9.6 mg/dL (7.8-10.44); Carbon Dioxide 23 mmol/L (23-31); Chloride 104 mmol/L (98-107); Estimated GFR 64; Globulin 3.2 g/dL (2.4-3.5); Glucose 140 mg/dL (83-110); Potassium 3.5 mmol/L (3.5-5.1); Protein, Total 7.2 g/dL (5.8-8.1); Sodium 136 mmol/L (136-145)
[2024-08-02 21:14] LABS: Troponin I Less than 0.010 ng/mL (< 0.028)
== END 2024-08-03 01:52 | disposition short-term general hospital (02) ==
LOC: ERS 19:31
DX: I70.202 Unspecified atherosclerosis of native arteries of extremities, left leg (principal)
CPT/HCPCS: 75635; 80053; 84484; 85025; 85610; 85730; 93005; 96374; 96376; 99285; J2272; 36415; Q9967

== ENCOUNTER 2025-09-19 14:09 | Outpatient (CLI) | payer MEDICARE, OTHER | END 2025-09-19 14:10 | disposition home or self-care (01) | LOC: LABBT 14:09 | PROVIDERS: ATTEND Internal Medicine Cardiovascular Disease | DX: Z01.810 Encounter for preprocedural cardiovascular examination (principal); I48.19 Other persistent atrial fibrillation | CPT/HCPCS: 93005; 93010 ==